=== PATIENT | female | born 1955 | race African-American/Black ===

== ENCOUNTER 2019-05-31 11:45 | Emergency (ER) | payer OTHER ==
[~2019-05-31] VITALS: Ht 177.8 cm; Wt 91.3 kg
[~2019-05-31 11:45] MED LIST: AMLO5TAB9 PO; LEVO125 PO; TRAM50TA4 PO
[2019-05-31] MEDS ORDERED: BACL10TA PO (12:07)
[2019-05-31] MEDS ORDERED: AMLO10TA7 PO (12:15)
[2019-05-31] MEDS ORDERED: ACETAMINOPHEN 325 MG TABLET PO ONE (12:15)
[2019-05-31 13:15] VITALS: BP 140/74
== END 2019-05-31 13:24 | disposition home or self-care (01) ==
LOC: EMS 11:45
DX: R13.10 Dysphagia, unspecified (principal); I10 Essential (primary) hypertension; E03.9 Hypothyroidism, unspecified; Z79.899 Other long term (current) drug therapy

== ENCOUNTER 2021-08-16 11:54 | Emergency (ER) | payer OTHER ==
[~2021-08-16] VITALS: Ht 172.7 cm; Wt 86.4 kg
[~2021-08-16 11:54] MED LIST changes: +AMLO-258 PO; -AMLO5TAB9 PO; +BACL10TA PO
[2021-08-16] MEDS ORDERED: IOHEXOL 350 MG/ML 100 ML VIAL ONE (12:05)
[2021-08-16] MEDS ORDERED: SODIUM CHLORIDE 0.9% 100 ML ONE (12:05)
[2021-08-16] MEDS ORDERED: GABAPENTIN 300 MG CAPSULE PO ONE (12:45)
[2021-08-16] MEDS ORDERED: KETOROLAC TROMETHAMINE 10 MG TABLET PO ONE (12:45)
[2021-08-16] MEDS ORDERED: TraMADol HCL 50 MG TABLET PO ONE (12:45)
[2021-08-16 13:22] VITALS: BP 133/79
[2021-08-21] MEDS ORDERED: GABA-1181 PO (15:42)
== END 2021-08-16 14:06 | disposition home or self-care (01) ==
LOC: EMS 11:54
DX: S46.012A Strain of muscle(s) and tendon(s) of the rotator cuff of left shoulder, initial encounter (principal); I10 Essential (primary) hypertension; E03.9 Hypothyroidism, unspecified; M79.7 Fibromyalgia; Z90.710 Acquired absence of both cervix and uterus; Z98.890 Other specified postprocedural states; Y33.XXXA Other specified events, undetermined intent, initial encounter; Y93.89 Activity, other specified; Y92.89 Other specified places as the place of occurrence of the external cause; Y99.8 Other external cause status
CPT/HCPCS: 36415; 73030; 99284; J7050; Q9967